=== PATIENT | male | born 1980 | race Caucasian/White ===

== ENCOUNTER 2016-10-24 13:32 | Emergency (ER) | payer BC ==
[2016-10-24] MEDS ORDERED: Acetaminophen TAB* 325 MG PO ONE (14:22)
[2016-10-24 14:33] LABS: Hematocrit 49 % (42-52); Hemoglobin 16.8 g/dl (14.0-18.0); Mean Corpuscular HGB Conc 35 g/dl (31-36); Mean Corpuscular Hemoglobin 30 pg (27-31); Mean Corpuscular Volume 87 fL (80-94); Mean Platelet Volume 8 um3 (7.4-10.4); Red Blood Count 5.61 10^6/ul (4.0-5.4); Red Cell Distribution Width 13 % (10.5-15)
[2016-10-24 14:49] LABS: Albumin 4.5 g/dL (3.2-5.2); BUN/Creatinine Ratio 14.3 (8-20); C Reactive Protein 1.17 mg/L (< 5.00); Calcium 9.4 mg/dL (8.6-10.3); EGFR African American 120.6 (>60); EGFR Non-African American 93.7 (>60); Globulin 3.3 g/dL (2-4); Potassium 3.7 mmol/L (3.5-5.0); Total Bilirubin 1.2 mg/dL (0.2-1.0); Total Protein 7.8 g/dL (6.4-8.9)
--- NOTE | 2016-10-24 15:14 | RAD ---
INDICATION: Fever COMPARISON: Chest x-ray September 29, 2010 TECHNIQUE: PA and lateral dual-energy views were obtained. FINDINGS: Bones/Soft Tissues: There are no acute bony findings. Cardiomediastinal: The cardiomediastinal silhouette is normal. Lungs: There are no infiltrates. There is mild chronic interstitial change Pleura: There are no pleural effusions. Other: None IMPRESSION: MILD CHRONIC INTERSTITIAL CHANGE. NO ACUTE PROCESS.
[2016-10-24] MEDS: NS 0.9% 1000 ML* 2,000 ML IV ONE ×2 (17:32→17:40)
[2016-10-24 18:06] LABS: Urine Bacteria Absent (Absent); Urine Bilirubin Negative (Negative); Urine Glucose Negative (Negative); Urine Nitrite Negative (Negative)
[2016-10-24 19:09] VITALS: BP 177/96
--- NOTE | 2016-10-25 08:18 | ED ---
Paola Turcios Matthew, scribed for Aaron Villaseñor MD on 10/24/16 at 1543 . Dizziness - HPI Summary HPI Summary: A 36 y/o male presents to the ED with dizziness since this morning. The feeling was described as lightheadedness; however the room was not spinning. The patient denies nausea, vomiting, chest pain, SOB, diaphoresis, palpitations, and headache - currently; he had one this morning. He states that sensation is similar to when he's hypoglycemic. On 10/20/16, the patient had a syncopal episode while at dinner. He states prior to the episode he had a few glasses of wine and became diaphoretic then synopsized. - History Of Current Complaint Chief Complaint: EDDizziness Stated Complaint: SYNCOPE Time Seen by Provider: 10/24/16 14:09 Hx Obtained From: Patient Onset/Duration: Still Present Timing: Constant Severity Initially: Moderate Severity Currently: Moderate Character: Lightheaded, Dizzy Aggravating Factor(s): Nothing Alleviating Factor(s): Nothing Associated Signs And Symptoms: Negative: Nausea, Vomiting, Diaphoresis, Chest Pain, SOB, Palpitations - Allergies/Home Medications Allergies/Adverse Reactions: Allergies Allergy/AdvReac Type Severity Reaction Status Date / Time No Known Allergies Allergy Verified 10/24/16 19:13 PMH/Surg Hx/FS Hx/Imm Hx Endocrine/Hematology History: Reports: Hx Diabetes - TYPE 1 - Surgical History Surgery Procedure, Year, and Place: left knee screws placed Infectious Disease History: No Infectious Disease History: Denies: Hx Clostridium Difficile, Hx Hepatitis, Hx Human Immunodeficiency Virus (HIV), Hx of Known/Suspected MRSA, Hx Shingles, Hx Tuberculosis, Hx Known/ Suspected VRE, Hx Known/Suspected VRSA, History Other Infectious Disease, Traveled Outside the [place] in Last 30 Days - Family History Known Family History: Positive: Diabetes Family History: PROSTATE CANCER - DAD - Social History Alcohol Use: Occasionally Substance Use Type: Reports: None Smoking Status (MU): Former Smoker Review of Systems Constitutional: Negative Eyes: Negative ENT: Negative Cardiovascular: Negative Negative: Palpitations, Chest Pain Respiratory: Negative Negative: Shortness Of Breath Gastrointestinal: Negative Negative: Vomiting, Nausea Genitourinary: Negative Musculoskeletal: Negative Skin: Negative Neurological: Other - Dizziness; lightheadedness Positive: Syncope - 10/20/16. Negative: Headache Psychological: Normal All Other Systems Reviewed And Are Negative: Yes Physical Exam - Summary Physical Exam Summary: VITAL SIGNS: Reviewed. GENERAL: Patient is a well developed and nourished male who is lying comfortable in the stretcher. Patient is not in any acute respiratory distress. HEAD AND FACE: No signs of trauma. No ecchymosis, hematomas or skull depressions. No sinus tenderness. EYES: PERRLA, EOMI x 2, No injected conjunctiva, no nystagmus. EARS: Hearing grossly intact. Ear canals and tympanic membranes are within normal limits. MOUTH: Oropharynx within normal limits. NECK: Supple, trachea is midline, no adenopathy, no JVD, no carotid bruit, no c- spine tenderness, neck with full ROM. CHEST: Symmetric, no tenderness at palpation LUNGS: Clear to auscultation bilaterally. No wheezing or crackles. CVS: Regular rate and rhythm, S1 and S2 present, no murmurs or gallops appreciated. ABDOMEN: Soft, non-tender. No signs of distention. No rebound no guarding, and no masses palpated. Bowel sounds are normal. EXTREMITIES: FROM in all major joints, no edema, no cyanosis or clubbing. NEURO: Alert and oriented x 3. No acute neurological deficits. Speech is normal and follows commands. SKIN: Dry and warm Triage Information Reviewed: Yes Vital Signs On Initial Exam: Initial Vitals Temp Pulse Resp BP Pulse Ox 98.1 F 107 20 187/115 99 10/24/16 13:37 10/24/16 13:37 10/24/16 13:37 10/24/16 13:37 10/24/16 13:37 Vital Signs Reviewed: Yes Diagnostics - Vital Signs Vital Signs Temp Pulse Resp BP Pulse Ox 10/24/16 13:40 98.1 F 107 20 187/115 100 10/24/16 13:37 98.1 F 107 20 187/115 99 - Laboratory Lab Results: Lab Results 10/24/16 10/24/16 10/24/16 Range/Units 14:00 14:00 14:00 WBC 7.0 (3.5-10.8) 10^3/ul RBC 5.61 H (4.0-5.4) 10^6/ul Hgb 16.8 (14.0-18.0) g/dl Hct 49 (42-52) % MCV 87 (80-94) fL MCH 30 (27-31) pg MCHC 35 (31-36) g/dl RDW 13 (10.5-15) % Plt Count 254 (150-450) 10^3/ul MPV 8 (7.4-10.4) um3 Neut % (Auto) 61.2 (38-83) % Lymph % (Auto) 26.9 (25-47) % [place] % (Auto) 8.1 (1-9) % Eos % (Auto) 2.6 (0-6) % Baso % (Auto) 1.2 (0-2) % Absolute Neuts (auto) 4.3 (1.5-7.7) 10^3/ul Absolute Lymphs (auto) 1.9 (1.0-4.8) 10^3/ul Absolute Monos (auto) 0.6 (0-0.8) 10^3/ul Absolute Eos (auto) 0.2 (0-0.6) 10^3/ul Absolute Basos (auto) 0.1 (0-0.2) 10^3/ul Absolute Nucleated RBC 0 10^3/ul Nucleated RBC % 0 Sodium 135 (133-145) mmol/L Potassium 3.7 (3.5-5.0) mmol/L Chloride 99 L (101-111) mmol/L Carbon Dioxide 27 (22-32) mmol/L Anion Gap 9 (2-11) mmol/L BUN 13 (6-24) mg/dL Creatinine 0.91 (0.67-1.17) mg/dL Est GFR ( Amer) 120.6 (>60) Est GFR (Non-Af Amer) 93.7 (>60) BUN/Creatinine Ratio 14.3 (8-20) Glucose 185 H (70-100) mg/dL Lactic Acid 1.0 (0.5-2.0) mmol/L Calcium 9.4 (8.6-10.3) mg/dL Total Bilirubin 1.20 H (0.2-1.0) mg/dL AST 21 (13-39) U/L ALT 35 (7-52) U/L Alkaline Phosphatase 65 (34-104) U/L C-Reactive Protein 1.17 (< 5.00) mg/L Total Protein 7.8 (6.4-8.9) g/dL Albumin 4.5 (3.2-5.2) g/dL Globulin 3.3 (2-4) g/dL Albumin/Globulin Ratio 1.4 (1-3) Influenza A (Rapid) (Negative) Influenza B (Rapid) (Negative) 10/24/16 Range/Units 14:36 WBC (3.5-10.8) 10^3/ul RBC (4.0-5.4) 10^6/ul Hgb (14.0-18.0) g/dl Hct (42-52) % MCV (80-94) fL MCH (27-31) pg MCHC (31-36) g/dl RDW (10.5-15) % Plt Count (150-450) 10^3/ul MPV (7.4-10.4) um3 Neut % (Auto) (38-83) % Lymph % (Auto) (25-47) % [place] % (Auto) (1-9) % Eos % (Auto) (0-6) % Baso % (Auto) (0-2) % Absolute Neuts (auto) (1.5-7.7) 10^3/ul Absolute Lymphs (auto) (1.0-4.8) 10^3/ul Absolute Monos (auto) (0-0.8) 10^3/ul Absolute Eos (auto) (0-0.6) 10^3/ul Absolute Basos (auto) (0-0.2) 10^3/ul Absolute Nucleated RBC 10^3/ul Nucleated RBC % Sodium (133-145) mmol/L Potassium (3.5-5.0) mmol/L Chloride (101-111) mmol/L Carbon Dioxide (22-32) mmol/L Anion Gap (2-11) mmol/L BUN (6-24) mg/dL Creatinine (0.67-1.17) mg/dL Est GFR ( Amer) (>60) Est GFR (Non-Af Amer) (>60) BUN/Creatinine Ratio (8-20) Glucose (70-100) mg/dL Lactic Acid (0.5-2.0) mmol/L Calcium (8.6-10.3) mg/dL Total Bilirubin (0.2-1.0) mg/dL AST (13-39) U/L ALT (7-52) U/L Alkaline Phosphatase (34-104) U/L C-Reactive Protein (< 5.00) mg/L Total Protein (6.4-8.9) g/dL Albumin (3.2-5.2) g/dL Globulin (2-4) g/dL Albumin/Globulin Ratio (1-3) Influenza A (Rapid) Negative (Negative) Influenza B (Rapid) Negative (Negative) Result Diagrams: 10/24/16 14:00 10/24/16 14:00 Lab Statement: Any lab studies that have been ordered have been reviewed, and results considered in the medical decision making process. - Radiology CXR Xray Interpretation: No Acute Changes - IMPRESSION: MILD CHRONIC INTERSTITIAL CHANGE. NO ACUTE PROCESS. Radiology Interpretation Completed By: Radiologist - EKG 13:46 Cardiac Rate: NL - 93 bpm EKG Rhythm: Sinus Rhythm EKG Interpretation: No ST elevation; TWI in v5-v6 Dizzy Course/Dx - Course Assessment/Plan: A 36 y/o male presents to the ED with dizziness since this morning. The feeling was described as lightheadedness; however the room was not spinning. The patient denies nausea, vomiting, chest pain, SOB, diaphoresis, palpitations, and headache - currently; he had one this morning. He states that sensation is similar to when he's hypoglycemic. On 10/20/16, the patient had a syncopal episode while at dinner. He states prior to the episode he had a few glasses of wine and became diaphoretic then synopsized. Test results CBC WNL, CMP shows chloride of 99, glucose of 185, urinalysis shows positive ketones. Influenza A&B negative. CXR shows no acute cardiopulmonary disease. EKG shows sinus rhythm without ST elevation. TWI in V5-V6. In the ED course, the patient was given Tylenol for fever, and IV fluids and the symptoms resolved. The patient is still having rhinorrhea, but the flu was negative. He denies any sore throat or painful swallowing. I do no suspect meningitis since the patient does not have headache, neck pain, or photophobia. Physical exam reveals no meningeal signs. I did not suspect the patient has ACS, because he has no CP and the troponin is negative. I do no suspect PE since the patient is not hypoxic, not tachycardiac, and the d-dimer is less than 200. I suspect the patient has a viral illness. However, he was recommended to return to the ED dizziness, syncopal episode, or any other symptoms. The patient understands and agrees. The patient is A&Ox3 and hemodynamically stable. - Diagnoses Differential Diagnosis/HQI/PQRI: Anxiety, Seizure, Transient Ischemic Attack, Vasovagal Reaction Provider Diagnoses: Weakness, Dehydration, Fever Discharge - Discharge Plan Condition: Guarded Disposition: HOME Patient Education Materials: Dehydration (ED), Viral Syndrome (ED), Weakness ( ED) Referrals: Naz HOUSTON,Olga [Primary Care Provider] - 3 Days Additional Instructions: Please follow-up with your primary care physician in 3 days. Return to the ED if you develop dizziness, syncopal episode, or any other symptoms. The documentation as recorded by the Paola ortiz Matthew accurately reflects the service I personally performed and the decisions made by me, Aaron Villaseñor MD.
== END 2016-10-24 19:21 | disposition home or self-care (01) ==
LOC: ED 13:32
DX: R53.1 Weakness (principal); E86.0 Dehydration; R50.9 Fever, unspecified; R55 Syncope and collapse; R42 Dizziness and giddiness; R00.2 Palpitations; Z87.891 Personal history of nicotine dependence
CPT/HCPCS: 36415; 71020; 80053; 81003; 81015; 83605; 85025; 85379; 86140; 87040; 87502; 93005; 99283; A9270-GY